=== PATIENT | female | born 1980 | race Caucasian/White ===

== ENCOUNTER 2023-11-30 12:07 | Emergency (ER) | payer OTHER ==
[~2023-11-30] VITALS: Ht 167.6 cm; Wt 110.0 kg
[2023-11-30 12:09] VITALS: O2SAT 98
[2023-11-30] MEDS: SODIUM CHLORIDE 0.9% 2,200 ML IV ONE (13:00)
[2023-11-30 13:15] LABS: BASOPHILS % 0.8 % (0.0-2.0); EOSINOPHILS % 1.9 % (0.0-5.0); HEMATOCRIT. 37.5 % (36.0-48.0); HEMOGLOBIN. 12.4 g/dL (12.0-16.0); LYMPHOCYTES % 18.8 % (20.0-50.0); MEAN CORPUSCULAR HEMOGLOBIN 32.1 pg (28.0-32.0); MEAN CORPUSCULAR HGB CONC 33.1 g/dL (31.0-37.0); MEAN CORPUSCULAR VOLUME 97.1 fL (81.0-99.0); MONOCYTES % 6.3 % (2.0-8.0); NEUTROPHILS % 72.2 % (40.0-76.0); PLATELET 230 x1000/uL (130-400); RED BLOOD CELL COUNT 3.86 mill/uL (4.2-5.4); RED CELL DISTRIBUTION WIDTH 13.7 % (11.6-14.6); WHITE BLOOD COUNT 8.2 x1000/uL (4.5-11.0)
[2023-11-30 13:23] LABS: PROTHROMBIN TIME 10.9 sec (9.6-11.0)
[2023-11-30 13:28] LABS: ALANINE AMINOTRANSFERASE 18 IU/L (10-49); ALBUMIN 3.9 g/dL (3.2-4.8); ASPARTATE AMINOTRANSFERASE 25 IU/L (<34); BILIRUBIN TOTAL 0.4 mg/dL (0.1-1.0); CARBON DIOXIDE 27 mEq/L (21-32); CHLORIDE 105 mEq/L (98-107); CREATININE 0.7 mg/dL (0.6-1.0); GLUCOSE 110 mg/dL (70-105); POTASSIUM 4.2 mEq/L (3.5-5.1); PROTEIN TOTAL 6.3 g/dL (6.0-8.3); SODIUM 139 mEq/L (136-145); UREA NITROGEN BLOOD 8 mg/dL (9-23)
[2023-11-30 13:33] LABS: B-HCG QUANTITATIVE 1 mIU/mL (<3)
[2023-11-30] MEDS: ONDANSETRON HCL 4MG/2ML INJ IV ONE (14:15)
[2023-11-30 16:55] VITALS: BP 125/51; PULSE 70; RESP 18
== END 2023-11-30 16:57 | disposition home or self-care (01) ==
LOC: ER 12:35
DX: N93.9 Abnormal uterine and vaginal bleeding, unspecified (principal); F41.9 Anxiety disorder, unspecified; F32.A Depression, unspecified; Z90.710 Acquired absence of both cervix and uterus
CPT/HCPCS: 80053; 84702; 85025; 85610; 86850; 86900; 86901; 36415; 76830; 76856; 96361; 96374; 99285; J2405; Z7610 ×4